=== PATIENT | female | born 1975 | race Caucasian/White ===

== ENCOUNTER → 2023-08-15 12:29 | Outpatient (REF) | payer BC, SELFPAY | LOC: MRI 3T 12:29 | PROVIDERS: ATTENDING PHYSICIAN Internal Medicine | DX: M25.512 Pain in left shoulder (principal); R79.1 Abnormal coagulation profile | CPT/HCPCS: 73221 ==

== ENCOUNTER → 2023-09-22 11:08 | Outpatient (REF) | payer BC, SELFPAY | LOC: WDC 11:08 | PROVIDERS: ATTENDING PHYSICIAN Nurse Practitioner Adult Health; FAMILY PHYSICIAN Physician Assistant Medical | DX: Z12.31 Encounter for screening mammogram for malignant neoplasm of breast (principal) | CPT/HCPCS: 77063; 77067 ==

== ENCOUNTER → 2024-03-13 22:00 | Outpatient (REF) | payer BC, SELFPAY | LOC: DHSLP 22:00 | PROVIDERS: ATTENDING PHYSICIAN Internal Medicine Critical Care Medicine; FAMILY PHYSICIAN Physician Assistant Medical | DX: G47.19 Other hypersomnia (principal); G47.8 Other sleep disorders; R06.83 Snoring | CPT/HCPCS: 95800 ==

== ENCOUNTER 2024-05-14 16:57 | Emergency (ER) | payer BC, SELFPAY ==
[2024-05-14 16:59] VITALS: BP 151/90
[2024-05-14] MEDS: DECADRON 10 MG IV (17:10)
[2024-05-14] MEDS: VENTOLIN NEBULES 2.5 MG INH (17:10)
[2024-05-14] MEDS: BENADRYL 25 MG IV (17:10)
[2024-05-14] MEDS: NSS 500 IV (17:10)
[2024-05-14] MEDS: PEPCID 20 MG IV (17:10)
--- NOTE | 2024-05-14 17:11 | ED.GENMED ---
History of Present Illness
General
Chief Complaint: Allergic Reaction
Source: patient
Exam Limitations: none
Time Seen by Provider: 05/14/24 17:05
Nursing documentation reviewed up to this point in time: agreed with
History of Present Illness
History of Present Illness:
Patient with history of severe allergic reaction, of unknown etiology, presents to ED secondary to sudden onset of itchy rash and shortness of breath, shortly after returning from visiting her family ember in the hospital. Denies any inciting
event. Patient has taken Benadryl prior to arrival, with minimal relief in symptoms. Patient who does have EpiPen in possession, did not utilize 1 before coming to ED. Denies nausea or vomiting. Denies chest pain. Denies throat swelling
sensation. Denies headache. Denies dizziness. Denies abdominal pain.
Past History
Past History
ED Past Medical History: Psychiatric (depression), Other (seasonal allergies) and Other ( ruptured ovarian cyst)
ED Past Surgical History: Cholecystectomy and
Social History
Tobacco: Non-smoker
Review of Systems
Review of Systems
Allergies reviewed?: Yes
All Other Systems: ROS reviewed and negative except as documented in HPI and ROS
Constitutional: Reports no symptoms
EENT: Reports no symptoms
Respiratory: Reports trouble breathing
Cardiac: Reports no symptoms
ABD/GI: Reports no symptoms; Denies vomiting
: Reports no symptoms
Musculoskeletal: Reports no symptoms
Skin: Reports itching and rash
Neurological: Reports no symptoms
Phy Exam
Physical Exam
Physical Exam:
Physical Exam
General: mild distress, not acutely ill. afebrile
Head: nc/at. eomi
Neck: supple. normal range of motion.
Heart: s1/s2 regular rate and rhythm, no murmur. equal radial pulses.
Lungs: no acute respiratory distress. clear bilaterally
Abdomen: normal bowel sounds. not tender.
Neuro: alert and oriented x 3. no focal neurological deficits
Skin: generalized hives noted
Psychiatric: well kept. interactive and cooperative
Extremities: no edema. no calf tenderness
Course
Orders/Labs/Results
Orders:
Orders
05/14/24 17:09
0.9% Sodium Chloride 500 ml [Nss] 500 ml IV BOLUS
Albuterol Nebs [Ventolin Nebules] 2.5 mg INH R NOW STA
Dexamethasone Sod Phosphate [Decadron] 10 mg IV NOW STA
Diphenhydramine [Benadryl] 25 mg IV NOW STA
Diphenhydramine [Benadryl] 50 mg .ROUTE .STK-MED ONE
Famotidine [Pepcid] 20 mg IV NOW STA
05/14/24 17:10
Albuterol Nebs [Ventolin Nebules] 2.5 mg .ROUTE .STK-MED ONE
Dexamethasone Sod Phosphate [Decadron] 20 mg .ROUTE .STK-MED ONE
EPINEPHrine PF [Adrenalin] 1 mg .ROUTE .STK-MED ONE
Famotidine [Pepcid] 20 mg .ROUTE .STK-MED ONE
Vital Signs
Initial and Last Documented VS:
Initial Vital Signs
Temp Pulse Resp BP Pulse Ox
98.3 F 94 20 151/90 96
05/14/24 16:59 05/14/24 16:59 05/14/24 16:59 05/14/24 16:59 05/14/24 16:59
Last Documented Vital Signs
Temp Pulse Resp BP Pulse Ox
98.3 F 82 18 196/87 95
05/14/24 16:59 05/14/24 18:15 05/14/24 18:15 05/14/24 18:25 05/14/24 18:25
MDM/Problems Addressed
MDM/Problems Addressed:
Patient with complete resolution of symptoms after treatment. Patient is afebrile, hemodynamically stable, and without any distress, at time of discharge. Patient states that she already has EpiPen at home and she has been advised to utilize it in
the future, with similar occurrence.
*Critical Care Note
Total Time (30-74mins, 75-104mins- exclusive of procedures): Not Applicable
ED Attending Note
-
Portions of this chart may have been created with voice recognition software.� Occasional wrong word or��sound alike� substitutions may have occurred due to the inherent limitations of voice recognition software.
Discharge Plan
Departure
Patient Disposition: Home (Routine Discharge)
Date of Disposition: 05/14/24
Time of Disposition: 18:26
Patient with high blood pressure during this ER visit?: Yes
Condition: Good
Discharge Problem:
Allergic reaction
Instructions: Allergic reaction - ED discharge instructions
Prescriptions:
No Action
fluoxetine [Prozac] 40 MG capsule
40 mg PO Daily
suegizacfjzb-Vz-pmlb-minerals [Multiple Vitamin, Womens] 1 EACH tablet
1 tab PO Daily
cetirizine [Zyrtec] 10 MG tablet
10 mg PO DAILY
Albuterol Sulfate Hfa
2 puff inhalation PRN PRN (Reason: asthma)
levonorgestrel [Mirena] 1 EACH intrauterine device
1 ea IY .
lorazepam 0.5 MG tablet
0.5 mg PO Q4HPRN PRN (Reason: anxiety)
magnesium 250 MG tablet
250 mg PO DAILY
bupropion HCl 150 MG tablet extended release 24 hr
150 mg PO DAILY
L.acidoph,paracasei,B.animalis 1 EACH capsule
1 ea PO DAILY
Boric Acid
1 tab VAG DAILY
ibuprofen 200 MG tablet
600 mg PO QIDPRN PRN (Reason: pain) Qty: 1 0RF
ibuprofen 800 MG tablet
800 mg PO QIDPRN PRN (Reason: pain, fever. Take with food.) Qty: 30 0RF
hydrocodone-acetaminophen 1 EACH tablet
1 ea PO QIDPRN PRN (Reason: pain) Qty: 8 0RF
Referrals:
Malgorzata Meade PA-C [Family Provider] -
Activity Restrictions/Additional Instructions:
As discussed, please follow-up with your primary care physician and/or digital imaging specialist for further evaluation and treatment.
Interventions
Interventions:
*Risk Screen - Suicide Last Done: 05/14/24 17:14
*General Assessment Last Done: 05/14/24 16:59
*Neglect/Abuse Screening Last Done: 05/14/24 17:14
ED- Fall Risk Assessment Last Done: 05/14/24 17:14
*ED COVID-19 Vaccine History Last Done: 05/14/24 17:14
*Nursing Disposition Last Done: 05/14/24 18:37
ED- Cardiac Assessment Last Done: 05/14/24 17:14
ED- Pulmonary Assessment Last Done: 05/14/24 17:14
ED-Skin Assessment Last Done: 05/14/24 17:14
Discharge Date and Time
Discharge Date/Time: 05/14/24 18:40
Print Language: AZERI
[2024-05-14 17:14] VITALS: BMI 34.0
[2024-05-14 18:00] VITALS: BP 198/81
[2024-05-14 18:15] VITALS: BP 117/78
[2024-05-14 18:25] VITALS: BP 196/87
== END 2024-05-14 18:40 | disposition home or self-care (01) ==
LOC: EMR 16:57
PROVIDERS: EMERGENCY PHYSICIAN Emergency Medicine; FAMILY PHYSICIAN Physician Assistant Medical
DX: T78.40XA Allergy, unspecified, initial encounter (principal); X58.XXXA Exposure to other specified factors, initial encounter; R06.02 Shortness of breath
CPT/HCPCS: 94640; 96374; 96375; 96361; 99284

== ENCOUNTER → 2024-09-26 08:52 | Outpatient (REF) | payer BC, SELFPAY | LOC: WDC 08:52 | PROVIDERS: ATTENDING PHYSICIAN Nurse Practitioner Adult Health | DX: Z12.31 Encounter for screening mammogram for malignant neoplasm of breast (principal) | CPT/HCPCS: 77063; 77067 ==